=== PATIENT | male | born 1950 | race Caucasian/White ===

== ENCOUNTER 2016-08-13 17:49 | Inpatient (IN) | payer BC, MEDICARE ==
[2016-08-13] MEDS ORDERED: POTASSIUM CHLO10 ME2 PO (18:15)
[2016-08-13] MEDS ORDERED: TRAZODONE HCL50 M1 PO (18:15)
[2016-08-13] MEDS ORDERED: WELLBUTRIN XL150 M1 PO (18:16)
[2016-08-13] MEDS ORDERED: COUMADIN2 M1 (18:16)
[2016-08-13] MEDS ORDERED: AVODART0.5 M1 PO (18:16)
[2016-08-13] MEDS ORDERED: COLCRYS0.6 M1 PO (18:17)
[2016-08-13] MEDS ORDERED: METOPROLOL TART25 M1 PO (18:17)
[2016-08-13] MEDS ORDERED: ULORIC80 M1 PO (18:18)
[2016-08-13] MEDS ORDERED: DEMADEX20 M1 PO (18:19)
[2016-08-13] MEDS ORDERED: AMARYL2 M1 PO (18:19)
[2016-08-13] MEDS ORDERED: GINSENG100 M1 PO (18:19)
[2016-08-13] MEDS ORDERED: PROBIOTIC1 EAC7 PO (18:19)
[2016-08-13] MEDS ORDERED: MULTIVITAMINS1 EAC6 PO (18:20)
[2016-08-13] MEDS ORDERED: ASPIRIN81 M1 PO (18:20)
[2016-08-13] MEDS ORDERED: MAGNESIUM OXID400 M1 PO (18:21)
[2016-08-13] MEDS ORDERED: OMEPRAZOLE20 M3 PO (18:21)
[2016-08-13] MEDS ORDERED: ACID REDUCER PO (18:21)
[2016-08-13] MEDS ORDERED: ALBUTEROL2.5 MG/3 M INH (18:22)
[2016-08-13] MEDS ORDERED: STIOLTO RESPIMAT4 GM INH (18:23)
[2016-08-13 18:27] LABS: BASO % 0.1 % (0-2); EOS % 2.1 % (0-7); EOSINOPHIL ABSOLUTE COUNT 0.2 tho/cmm (0.0-0.7); HCT-HEMATOCRIT 33.2 % (36.0-53.5); HGB-HEMOGLOBIN 10.4 gm/dl (13.5-17.0); IMMATURE GRANULOCYTES ABSOLUTE 0.04 tho/cmm (0-0.03); IMMATURE GRANULOCYTES PERCENT 0.5 % (0-0.3); LYMPH % 12.4 % (20-45); MCH (MEAN CORPUSCULAR HGB) 29.7 pg (28.0-32.0); MCHC MEAN CORPUSCULAR HGB CONC 31.3 % (32.0-36.0); MCV (MEAN CELL VOLUME) 94.9 fl (82.0-96.0); MEAN PLATELET VOLUME 11.5 cmc (9.4-12.4); MONO % 4.5 % (0-12); MONOCYTE ABSOLUTE COUNT 0.4 tho/cmm (0.0-1.2); NEUTROPHIL ABSOLUTE COUNT 6.6 tho/cmm (1.6-8.0); NEUTROPHIL-AUTOMATED 6.6 tho/cmm (1.6-8.0); NEUTROPHILS % 80.4 % (40-80); PLATELET COUNT 147 tho/cmm (150-450); WHITE BLOOD COUNT 8.2 tho/cmm (4.0-10.0)
[2016-08-13] MEDS ORDERED: METOLAZONE5 M1 PO (18:34)
[2016-08-13] MEDS ORDERED: COUMADIN2 M1 PO (18:34)
[2016-08-13] MEDS ORDERED: VIBRAMYCIN100 M1 PO (18:35)
[2016-08-13] MEDS ORDERED: COUMADIN1 M1 PO (18:35)
[2016-08-13 18:45] LABS: ALB/GLOB RATIO 0.9 (0.8-2.0); ALBUMIN 3.4 g/dl (3.5-5.0); ALKALINE PHOSPHATASE 86 U/L (33-138); ALT/SGPT 25 U/L (12-78); ANION GAP 17 mmol/L (0-20); AST/SGOT 47 U/L (10-40); BILIRUBIN,TOTAL 1.5 mg/dl (0.0-1.5); BLOOD UREA NITROGEN 109 mg/dl (6-24); CALCIUM 8.4 mg/dl (8.5-10.5); CARBON DIOXIDE-VENOUS 26 mmol/L (22-32); CHLORIDE 101 mmol/l (96-110); CREATININE 2.47 mg/dl (0.60-1.30); GLUCOSE 208 mg/dL (70-110); POTASSIUM 3.8 mmol/L (3.7-5.1); SODIUM 140 mmol/L (135-145); eGFR VALUE FOR BLACK 31 mL/Min
[2016-08-13 18:47] LABS: INR 2.4 INR (0.9-1.1); PROTHROMBIN TIME 28.2 SECONDS (9.0-13.6)
[2016-08-13 19:58] LABS: URINE BILIRUBIN NEGATIVE (NEG); URINE BLOOD NEGATIVE (NEG); URINE GLUCOSE (UA) NEGATIVE (NEG); URINE KETONE NEGATIVE (NEG); URINE LEUKOCYTE ESTERASE NEGATIVE (NEG); URINE NITRITE NEGATIVE (NEG); URINE PROTEIN NEGATIVE (NEG); URINE SPECIFIC GRAVITY 1.005 (1.003-1.030)
[2016-08-13 20:02] LABS: URINE APPEARANCE Y; URINE COLOR COLORLESS
[2016-08-14 06:30] LABS: INR 2.2 INR (0.9-1.1); PROTHROMBIN TIME 25.8 SECONDS (9.0-13.6)
[2016-08-14 06:41] LABS: ANION GAP 15 mmol/L (0-20); BLOOD UREA NITROGEN 104 mg/dl (6-24); CALCIUM 8.4 mg/dl (8.5-10.5); CARBON DIOXIDE-VENOUS 28 mmol/L (22-32); CHLORIDE 98 mmol/l (96-110); CREATININE 2.33 mg/dl (0.60-1.30); GLUCOSE 212 mg/dL (70-110); MAGNESIUM 1.9 mg/dl (1.8-2.6); POTASSIUM 3.2 mmol/L (3.7-5.1); SODIUM 138 mmol/L (135-145); eGFR VALUE FOR BLACK 33 mL/Min
[2016-08-14] MEDS ORDERED: VENTOLIN HFA18 G2 PO (11:12)
[2016-08-14] MEDS ORDERED: PREDNISONE5 M1 PO (11:12)
[2016-08-14] MEDS ORDERED: CIPRO250 M2 PO (11:12)
[2016-08-14] MEDS ORDERED: SINGULAIR10 M1 PO (11:14)
[2016-08-14 16:46] LABS: URINE TOTAL PROTEIN-RANDOM 6.5 mg/dl (<11.8)
[2016-08-14 17:19] LABS: MAGNESIUM 1.9 mg/dl (1.8-2.6)
[2016-08-14 17:27] LABS: POTASSIUM 2.8 mmol/L (3.7-5.1)
[2016-08-14 22:21] LABS: MAGNESIUM 1.8 mg/dl (1.8-2.6)
[2016-08-14 22:53] LABS: POTASSIUM 2.9 mmol/L (3.7-5.1)
[2016-08-15 05:02] LABS: INR 2.2 INR (0.9-1.1); PROTHROMBIN TIME 25.8 SECONDS (9.0-13.6)
[2016-08-15 05:10] LABS: ANION GAP 14 mmol/L (0-20); BLOOD UREA NITROGEN 99 mg/dl (6-24); CALCIUM 8.5 mg/dl (8.5-10.5); CARBON DIOXIDE-VENOUS 29 mmol/L (22-32); CHLORIDE 100 mmol/l (96-110); CREATININE 1.95 mg/dl (0.60-1.30); GLUCOSE 145 mg/dL (70-110); MAGNESIUM 1.8 mg/dl (1.8-2.6); PHOSPHOROUS 3.9 mg/dl (2.5-4.9); SODIUM 140 mmol/L (135-145); eGFR VALUE FOR BLACK 41 mL/Min
[2016-08-15 10:46] LABS: MAGNESIUM 1.8 mg/dl (1.8-2.6); POTASSIUM 3.6 mmol/L (3.7-5.1)
[2016-08-15 15:05] LABS: BODY FLUID APPEARANCE CLOUDY (CLEAR); BODY FLUID COLOR RED (COLORLESS); BODY FLUID RBC COUNT 16000 cmm (0); BODY FLUID VOLUME 1100 ml
[2016-08-15 15:06] LABS: BODY FLUID WBC COUNT 173 cmm
[2016-08-15 15:17] LABS: BODY FLUID LYMPHOCYTES 31 %; BODY FLUID MACROPHAGES 37 %; BODY FLUID NEUTROPHILS 32 %
[2016-08-15 15:24] LABS: BASO % 0.1 % (0-2); EOS % 1.3 % (0-7); EOSINOPHIL ABSOLUTE COUNT 0.1 tho/cmm (0.0-0.7); HCT-HEMATOCRIT 31.8 % (36.0-53.5); HGB-HEMOGLOBIN 9.8 gm/dl (13.5-17.0); IMMATURE GRANULOCYTES ABSOLUTE 0.06 tho/cmm (0-0.03); IMMATURE GRANULOCYTES PERCENT 0.7 % (0-0.3); LYMPH ABSOLUTE COUNT 1.1 tho/cmm (0.8-4.5); MCH (MEAN CORPUSCULAR HGB) 29.4 pg (28.0-32.0); MCHC MEAN CORPUSCULAR HGB CONC 30.8 % (32.0-36.0); MCV (MEAN CELL VOLUME) 95.5 fl (82.0-96.0); MEAN PLATELET VOLUME 10.8 cmc (9.4-12.4); MONO % 5.3 % (0-12); MONOCYTE ABSOLUTE COUNT 0.5 tho/cmm (0.0-1.2); NEUTROPHIL ABSOLUTE COUNT 7.4 tho/cmm (1.6-8.0); NEUTROPHIL-AUTOMATED 7.4 tho/cmm (1.6-8.0); NEUTROPHILS % 80.6 % (40-80); PLATELET COUNT 128 tho/cmm (150-450); RED BLOOD COUNT 3.33 mil/cmm (4.40-5.70); RED CELL DISTRIBUTION WIDTH 17.8 % (12.4-16.4); WHITE BLOOD COUNT 9.2 tho/cmm (4.0-10.0)
[2016-08-15 15:27] LABS: INR 2.2 INR (0.9-1.1); PROTHROMBIN TIME 26.3 SECONDS (9.0-13.6)
[2016-08-15 15:34] LABS: ANION GAP 13 mmol/L (0-20); BLOOD UREA NITROGEN 101 mg/dl (6-24); CALCIUM 8.5 mg/dl (8.5-10.5); CARBON DIOXIDE-VENOUS 31 mmol/L (22-32); CHLORIDE 100 mmol/l (96-110); CREATININE 1.95 mg/dl (0.60-1.30); GLUCOSE 158 mg/dL (70-110); POTASSIUM 3.3 mmol/L (3.7-5.1); SODIUM 141 mmol/L (135-145); eGFR VALUE FOR BLACK 41 mL/Min
[2016-08-15 16:01] LABS: MAGNESIUM 2.3 mg/dl (1.8-2.6); POTASSIUM 3.3 mmol/L (3.7-5.1)
[2016-08-15 22:14] LABS: MAGNESIUM 2.3 mg/dl (1.8-2.6)
[2016-08-16 04:46] LABS: BASO % 0.1 % (0-2); EOS % 2.8 % (0-7); EOSINOPHIL ABSOLUTE COUNT 0.2 tho/cmm (0.0-0.7); HCT-HEMATOCRIT 31.4 % (36.0-53.5); HGB-HEMOGLOBIN 9.8 gm/dl (13.5-17.0); IMMATURE GRANULOCYTES ABSOLUTE 0.05 tho/cmm (0-0.03); IMMATURE GRANULOCYTES PERCENT 0.6 % (0-0.3); LYMPH % 6.4 % (20-45); LYMPH ABSOLUTE COUNT 0.5 tho/cmm (0.8-4.5); MCH (MEAN CORPUSCULAR HGB) 29.7 pg (28.0-32.0); MCHC MEAN CORPUSCULAR HGB CONC 31.2 % (32.0-36.0); MCV (MEAN CELL VOLUME) 95.2 fl (82.0-96.0); MEAN PLATELET VOLUME 11.6 cmc (9.4-12.4); MONO % 14.7 % (0-12); MONOCYTE ABSOLUTE COUNT 1.2 tho/cmm (0.0-1.2); NEUTROPHIL ABSOLUTE COUNT 5.9 tho/cmm (1.6-8.0); NEUTROPHIL-AUTOMATED 5.9 tho/cmm (1.6-8.0); NEUTROPHILS % 75.4 % (40-80); PLATELET COUNT 131 tho/cmm (150-450); RED CELL DISTRIBUTION WIDTH 17.6 % (12.4-16.4); WHITE BLOOD COUNT 7.8 tho/cmm (4.0-10.0)
[2016-08-16 05:02] LABS: INR 2.3 INR (0.9-1.1); PROTHROMBIN TIME 27.8 SECONDS (9.0-13.6)
[2016-08-16 05:05] LABS: ANION GAP 15 mmol/L (0-20); BLOOD UREA NITROGEN 94 mg/dl (6-24); CALCIUM 8.7 mg/dl (8.5-10.5); CARBON DIOXIDE-VENOUS 30 mmol/L (22-32); CHLORIDE 97 mmol/l (96-110); CREATININE 1.83 mg/dl (0.60-1.30); GLUCOSE 83 mg/dL (70-110); MAGNESIUM 2.1 mg/dl (1.8-2.6); PHOSPHOROUS 3.5 mg/dl (2.5-4.9); POTASSIUM 3.3 mmol/L (3.7-5.1); SODIUM 139 mmol/L (135-145); eGFR VALUE FOR BLACK 44 mL/Min
[2016-08-16 11:11] LABS: MAGNESIUM 2.2 mg/dl (1.8-2.6); POTASSIUM 3.7 mmol/L (3.7-5.1)
[2016-08-16 15:26] LABS: BODY FLUID TYPE ASCITIC FLUID; FLUID ALBUMIN 2.2 g/dl
[2016-08-16 16:23] LABS: POTASSIUM 3.8 mmol/L (3.7-5.1)
[2016-08-16 22:17] LABS: MAGNESIUM 2.2 mg/dl (1.8-2.6)
[2016-08-17 04:23] LABS: INR 2.6 INR (0.9-1.1); PROTHROMBIN TIME 31.6 SECONDS (9.0-13.6)
[2016-08-17 04:34] LABS: ANION GAP 14 mmol/L (0-20); BLOOD UREA NITROGEN 96 mg/dl (6-24); CALCIUM 8.9 mg/dl (8.5-10.5); CARBON DIOXIDE-VENOUS 31 mmol/L (22-32); CHLORIDE 97 mmol/l (96-110); CREATININE 2.09 mg/dl (0.60-1.30); GLUCOSE 91 mg/dL (70-110); PHOSPHOROUS 4.3 mg/dl (2.5-4.9); POTASSIUM 3.7 mmol/L (3.7-5.1); SODIUM 138 mmol/L (135-145); eGFR VALUE FOR BLACK 38 mL/Min
[2016-08-17] MEDS ORDERED: AMILORIDE HCL5 M1 PO (14:06)
[2016-08-17] MEDS ORDERED: OXYCODONE20 MG/1 M3 PO/SL (14:11)
[2016-08-17] MEDS ORDERED: ATIVAN2 MG/1 ML PO/SL (14:12)
[2016-08-17] MEDS ORDERED: DEMADEX20 M1 PO (15:07)
[2016-08-17] MEDS ORDERED: ALDACTONE25 M1 PO (15:08)
[2016-08-17] MEDS ORDERED: ZAROXOLYN PO (15:10)
[2016-08-17] MEDS ORDERED: POTASSIUM CHLO20 ME3 PO (15:11)
== END 2016-08-17 14:45 | DRG 292 ==
LOC: EDMED 17:49 → EMR2 21:34 → PCUA 23:25
PROVIDERS: Emergency Medicine; Internal Medicine Cardiovascular Disease; Internal Medicine Nephrology; Nurse Practitioner; Nurse Practitioner Family; Radiology Diagnostic Radiology; Specialist; ADMIT Internal Medicine Interventional Cardiology
PROC: 0W9G3ZZ Drainage of Peritoneal Cavity, Percutaneous Approach (ICD-10-PCS; principal; 2016-08-15)
DX: I50.33 Acute on chronic diastolic (congestive) heart failure (principal); N18.4 Chronic kidney disease, stage 4 (severe); N17.9 Acute kidney failure, unspecified; R18.8 Other ascites; Z79.01 Long term (current) use of anticoagulants; Z95.2 Presence of prosthetic heart valve; I12.9 Hypertensive chronic kidney disease with stage 1 through stage 4 chronic kidney disease, or unspecified chronic kidney disease; I48.2 Chronic atrial fibrillation; E78.5 Hyperlipidemia, unspecified; J44.9 Chronic obstructive pulmonary disease, unspecified; E11.9 Type 2 diabetes mellitus without complications; E66.9 Obesity, unspecified; K21.9 Gastro-esophageal reflux disease without esophagitis; I45.10 Unspecified right bundle-branch block; F32.9 Major depressive disorder, single episode, unspecified; I87.8 Other specified disorders of veins; N40.0 Benign prostatic hyperplasia without lower urinary tract symptoms; Z51.5 Encounter for palliative care; Z85.038 Personal history of other malignant neoplasm of large intestine; Z66 Do not resuscitate; Z79.82 Long term (current) use of aspirin; Z68.30 Body mass index [BMI] 30.0-30.9, adult
CPT/HCPCS: C8929; J0885; J1120; J1815; J1940; J3475; J7050; P9047; P9612